=== PATIENT | female | born 1970 ===

== ENCOUNTER 2017-04-13 11:04 | Emergency (ER) | payer OTHER ==
[2017-04-13 11:30] VITALS: BMI 34.4
--- NOTE | 2017-04-13 12:15 | CT ---
History: Right-sided weakness Study: CT brain without contrast Findings: [address] imaging through the head is performed with coronal and sagittal reformatted i tejas submitted as well. There is a tiny area of diminished density within the right thalamus suggest ing a previous lacunar infarct. Ventricles are normal in size and position. There is an area of dimin ished density within the medial aspect of the right occipital lobe medially consistent with a previou s peripheral infarct. No acute infarct, bleed or subdural collection is identified. The bony calvariu m appears intact. Impression: Previous small right-sided infarcts as described. Reported By:
[2017-04-13 12:40] LABS: BASOPHILS # (AUTO) 0.1 X10^3/uL (0.0-0.1); BASOPHILS % (AUTO) 1.3 % (0.2-1.0); EOSINOPHILS # (AUTO) 0.2 x10^3/uL (0.0-0.2); EOSINOPHILS % (AUTO) 2.2 % (0.9-2.9); HEMATOCRIT 39.5 % (36.0-47.0); HEMOGLOBIN 13.4 g/dL (12.0-16.0); LYMPHOCYTES # (AUTO) 2.2 X10^3/uL (1.3-2.9); LYMPHOCYTES % (AUTO) 22.1 % (21.0-51.0); MEAN CORPUSCULAR HEMOGLOBIN 29.4 pg (27.0-34.0); MEAN CORPUSCULAR HGB CONC 33.9 g/dL (33.0-35.0); MEAN CORPUSCULAR VOLUME 86.8 fL (80.0-100.0); MEAN PLATELET VOLUME 8.5 fL (7.4-11.0); MONOCYTES # (AUTO) 0.4 x10^3/uL (0.3-0.8); MONOCYTES % (AUTO) 3.9 % (0.0-13.0); NEUTROPHILS % (AUTO) 70.5 % (42.0-75.0); PLATELET COUNT 354 X10^3/uL (150.0-450.0); RED BLOOD COUNT 4.55 X10^6/uL (3.5-5.4); RED CELL DISTRIBUTION WIDTH 14.6 % (11.6-16.5)
[2017-04-13 12:58] LABS: ALANINE AMINOTRANSFERASE 21 Units/L (12-78); ALBUMIN 3.4 g/dL (3.4-5.0); ALKALINE PHOSPHATASE 78 Units/L (46-116); ASPARTATE AMINO TRANSFERASE 16 Units/L (15-37); BLOOD UREA NITROGEN 7 mg/dL (7-18); CALCIUM 8.8 mg/dL (8.5-10.1); CARBON DIOXIDE 28.6 mmol/L (21-32); CHLORIDE 103 mmol/L (98-107); CREATINE KINASE MB < 1.0 ng/mL (0-4.0); CREATININE 0.74 mg/dL (0.55-1.02); SODIUM 139 mmol/L (136-145); eGFR BLACK RACES > 60 (>60); eGFR NON BLACK RACES > 60 (>60)
--- NOTE | 2017-04-13 13:25 | DR.GENAD ---
HPI - PCP Primary Care Physician: DOMINIQUE MCKEON, AND DR. HERNANDEZ - Complaint/Symptoms Chief Complaint:: YESTERDAY AM NOTED UNABLE TO DO ANYTHING WITH THE RIGHT ARM. 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 WHEN WENT TO BED THE NIGHT BEFORE YESTERDAY HAD. 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, Hysterectomy - Family History History of Family Medical Conditions: Yes Family Medical History: Cancer, Hypertension - Social History Type of Tobacco Use: Cigarettes Alcohol Use: None Do you use any recreational Drugs:: No Lives With: Family Lives Where: Home - infectious screening In the last 2 months have you had wt loss of >10#?: NO Have you had fever, night sweats or hemotysis?: No Have you traveled outside the country in the last 6 months?: No Isolation: Standard ROS - Review of Systems Constitutional: See HPI Eyes: No Symptoms Reported ENTM: No Symptoms Reported Respiratoy: No Symptoms Reported Cardiovascular: No Symptoms Reported Gastrointestinal/Abdominal: No Symptoms Reported Neurological: Pre-existing Deficit, Weakness, Other (weak RUE, much worse than before prior CVA) Musculoskeletal: See HPI Integumentary: No Symptoms Reported Hematologic/Lymphatic: No Symptoms Reported Endocrine: No Symptoms Reported Psychiatric: No Symptoms Reported All Other Systems: Reviewed and Negative PE - Vital Signs Vitals: Temperature 98.9 F Pulse Rate [Apical] 73 Pulse Rate 76 Respiratory Rate 20 Blood Pressure [Left Arm] 167/91 Blood Pressure 216/96 O2 Sat by Pulse Oximetry 100 - General Limitations: No Limitations General Appearance: Alert, In No Apparent Distress. negative: Appears Intoxicated, Anxious, Lethargic, Obtunded, In Distress, Obese, Cachectic - Head Head Exam: Normal Inspection, Normocephalic - Eyes Eye exam: Normal Appearance, PERRL, EOMI. negative: Nystagmus - ENT ENT Exam: Normal Exam - Neck Neck Exam: Normal Inspection, Full ROM - Chest Chest Inspection: Normal Inspection - Respiratory Respiratory Exam: Normal Lung Sounds Bilat Respiratory Exam: Bilateral Clear to Auscultation - Cardiovascular Cardiovascular Exam: Regular Rate, Normal Rhythm, Normal Heart Sounds - Abdominal Exam Abdominal Exam: Normal Inspection, Normal Bowel Sounds, Soft - Extremities Extremities Exam: Other (R arm strength 2/5, can barely move against gravity. Sensation intact. Entire RUE affected. Pt normally rt handed) - Back Back Exam: Normal Inspection - Neurologic Neurological Exam: Alert, Oriented X3, Normal Gait - Psychiatric Psychiatric Exam: Normal Affect, Normal Mood ROR - Labs Reviewed Laboratory Results Reviewed?: Yes (nothuing acute) Result Diagrams: 04/13/17 12:30 04/13/17 12:30 Laboratory: WBC 10.0 X10^3/uL (3.6-10.0) 04/13/17 12:30 RBC 4.55 X10^6/uL (3.5-5.4) 04/13/17 12:30 Hgb 13.4 g/dL (12.0-16.0) 04/13/17 12:30 Hct 39.5 % (36.0-47.0) 04/13/17 12:30 MCV 86.8 fL (80.0-100.0) 04/13/17 12:30 MCH 29.4 pg (27.0-34.0) 04/13/17 12:30 MCHC 33.9 g/dL (33.0-35.0) 04/13/17 12:30 RDW 14.6 % (11.6-16.5) 04/13/17 12:30 Plt Count 354 X10^3/uL (150.0-450.0) 04/13/17 12:30 MPV 8.5 fL (7.4-11.0) 04/13/17 12:30 Neut % 70.5 % (42.0-75.0) 04/13/17 12:30 Lymph % 22.1 % (21.0-51.0) 04/13/17 12:30 Clinton % 3.9 % (0.0-13.0) 04/13/17 12:30 Eos % 2.2 % (0.9-2.9) 04/13/17 12:30 Baso % 1.3 % (0.2-1.0) H 04/13/17 12:30 Neut # 7.0 x10^3/uL (2.2-4.8) H 04/13/17 12:30 Lymph # 2.2 X10^3/uL (1.3-2.9) 04/13/17 12:30 Clinton # 0.4 x10^3/uL (0.3-0.8) 04/13/17 12:30 Eos # 0.2 x10^3/uL (0.0-0.2) 04/13/17 12:30 Baso # 0.1 X10^3/uL (0.0-0.1) 04/13/17 12:30 Absolute Nucleated RBC 0.0 /100WBC 04/13/17 12:30 Sodium 139 mmol/L (136-145) 04/13/17 12:30 Corrected Sodium TNP 04/13/17 12:30 Potassium 3.7 mmol/L (3.5-5.1) 04/13/17 12:30 Chloride 103 mmol/L (98-107) 04/13/17 12:30 Carbon Dioxide 28.6 mmol/L (21-32) 04/13/17 12:30 BUN 7 mg/dL (7-18) 04/13/17 12:30 Creatinine 0.74 mg/dL (0.55-1.02) 04/13/17 12:30 Est GFR (MDRD) Af Amer > 60 (>60) 04/13/17 12:30 Est GFR (MDRD) Non-Af > 60 (>60) 04/13/17 12:30 Glucose 99 mg/dL (65-99) 04/13/17 12:30 Calcium 8.8 mg/dL (8.5-10.1) 04/13/17 12:30 Corrected Calcium TNP 04/13/17 12:30 Total Bilirubin 0.10 mg/dL (0.2-1.0) L 04/13/17 12:30 AST 16 Units/L (15-37) 04/13/17 12:30 ALT 21 Units/L (12-78) 04/13/17 12:30 Alkaline Phosphatase 78 Units/L (46-116) 04/13/17 12:30 CK-MB (CK-2) < 1.0 ng/mL (0-4.0) 04/13/17 12:30 Total Protein 8.0 g/dL (6.4-8.2) 04/13/17 12:30 Albumin 3.4 g/dL (3.4-5.0) 04/13/17 12:30 Globulin 4.6 g/dL (2.5-4.5) H 04/13/17 12:30 Albumin/Globulin Ratio 0.7 Ratio (1.1-2.1) L 04/13/17 12:30 - XRAY XRAY Findings: CT head no new acute lesion - Diagnosis Discharge Problem: Right arm weakness - Discharge Plan Disposition: 01 HOME, SELF-CARE Condition: Stable - Follow ups/Referrals Follow ups/Referrals: DOMINIQUE MCKEON [Primary Care Provider] - 3 days - Instructions Additional Notes - Additional Notes Additional Notes: Spoke with Dr Voss, pt's neurologist. Sghe suggests MRI but pt unwilling to wait today to get one from the ER. Dr Voss also suggests hypercoag w/u. Pt cant recall having one, nor can she recall getting her carotids etc checked. I urged her to f/u Dr Voss for further w/u.
[2017-04-13 14:24] VITALS: BP 167/91
== END 2017-04-13 14:50 | disposition home or self-care (01) ==
LOC: ER 11:53
DX: R53.1 Weakness (principal); Z86.73 Personal history of transient ischemic attack (TIA), and cerebral infarction without residual deficits
CPT/HCPCS: 36415; 70450; 80053; 82553; 85025; 99282; 99283

== ENCOUNTER 2017-04-28 14:24 | Emergency (ER) | payer OTHER ==
[2017-04-28 14:30] VITALS: BMI 34.0
--- NOTE | 2017-04-28 15:15 | DR.GENAD ---
HPI - PCP Primary Care Physician: DOMINIQUE , - Complaint/Symptoms Chief Complaint Doctors Comments: Patient presented to the ED s/p being informed that her MRI was abnormal. She states that she started having vision problems two weeks ago and getitng less feeling in her right hand. Comparison of brain CT 04/13/[address] of brain 04/30/17 @1158 and MR brain 11/25/14: new area of T2 signal abnormality in the left bullock radiata is compatible with subactue infarction. 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 Chief Complaint:: PT STATES " I WAS AT HOME ON THE [place] AND I WAS TOLD THAT MY MRI WAS NOT NORMAL AND TO COME TO THE ER TO BE SEEN". 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, Hysterectomy - Family History History of Family Medical Conditions: Yes Family Medical History: Cancer, Hypertension - Social History Does patient currently use any type of tobacco product: Yes Have you used tobacco products in the last 12 months: Yes Type of Tobacco Use: Cigarettes How many years tobacco product used: 32 Does any household member use tobacco: No Alcohol Use: None Do you use any recreational Drugs:: No Lives With: Family Lives Where: Home - infectious screening In the last 2 months have you had wt loss of >10#?: NO Have you had fever, night sweats or hemotysis?: No Have you traveled outside the country in the last 6 months?: No Isolation: Standard ROS - Review of Systems Eyes: No Symptoms Reported ENTM: No Symptoms Reported Respiratoy: No Symptoms Reported Cardiovascular: No Symptoms Reported Gastrointestinal/Abdominal: No Symptoms Reported Genitourinary: No Symptoms Reported Neurological: No Symptoms Reported Musculoskeletal: No Symptoms Reported Integumentary: No Symptoms Reported Hematologic/Lymphatic: No Symptoms Reported Endocrine: No Symptoms Reported Psychiatric: No Symptoms Reported All Other Systems: Reviewed and Negative PE - Vital Signs Vitals: Temperature 98.0 F Pulse Rate 81 Respiratory Rate 18 Blood Pressure [Left Arm] 167/91 Blood Pressure 167/91 O2 Sat by Pulse Oximetry 98 - General General Appearance: Alert, In No Apparent Distress - Head Head Exam: Normal Inspection, Atraumatic - Eyes Eye exam: Normal Appearance, PERRL, EOMI - ENT ENT Exam: Normal Exam, Normal Oropharynx External Ear Exam: Normal External Inspection TM/Canal Exam: Bilateral Normal Nose Exam: Normal Nose Exam Mouth Exam: Normal Inspection Throat Exam: Normal Inspection - Neck Neck Exam: Normal Inspection - Chest Chest Inspection: Normal Inspection - Respiratory Respiratory Exam: Normal Lung Sounds Bilat Respiratory Exam: Bilateral Clear to Auscultation - Cardiovascular Cardiovascular Exam: Regular Rate, Normal Rhythm - Abdominal Exam Abdominal Exam: Normal Inspection Abdominal Tenderness: negative: RUQ, RLQ, LUQ, LLQ, Epigastrium, Suprapubic, Diffuse, Mild, Moderate, Severe, Other - Extremities Extremities Exam: Other (right sided hemiparesis) - Back Back Exam: Normal Inspection, Full ROM - Neurologic Neurological Exam: Alert, Oriented X3 - Psychiatric Psychiatric Exam: Normal Affect - Skin Skin Exam: Warm, Dry, Intact Course - Treatment Treatment: Report of MR given to patient, she decided to see her neurologist on Monday05/01/17. - Consultation Called: 16:00 (He agreed to see patient on Monday) Consultation Comments: Patient decided to wait to see her neurologist on Monday- The report of the MR was discussed with patient - Diagnosis Discharge Problem: Acute right hemiparesis - Discharge Plan Condition: Stable - Follow ups/Referrals Follow ups/Referrals: DOMINIQUE MCKEON [Primary Care Provider] - 3 days - Instructions
[2017-04-28] MEDS ORDERED: CATAPRES TAB 0.2 MG PO ONE (15:32)
[2017-04-28] MEDS ORDERED: CATAPRES TAB 0.2 MG ONE (15:33)
[2017-04-28 16:39] VITALS: BP 222/95
== END 2017-04-28 16:30 | disposition home or self-care (01) ==
LOC: ER 14:34
DX: G81.93 Hemiplegia, unspecified affecting right nondominant side (principal)
CPT/HCPCS: 70551; 99282

== ENCOUNTER → 2017-04-28 | Outpatient (CLI) | payer OTHER ==
[2017-04-13 14:24] VITALS: BP 167/91
--- NOTE | 2017-04-28 12:20 | MRI ---
MR brain without contrast Indication: Headaches and right sided weakness Comparison: 04/13/[address] MR brain from 11/25/2014 reviewed. Technique: Multiplanar multi sequence imaging through the brain without contrast. Findings: There is focal abnormal signal on diffusion-weighted imaging in the left bullock radiata, abutting the basal ga nglia on axial image 24 of series 602. ADC map shows high-signal in this location. This corresponds t o vague hypodensity on CT. Bone marrow signal is normal. Pituitary gland is normal. Upper cervical spine is intact. The orbits a nd soft tissues of the face appear normal. Paranasal sinuses and mastoid air cells are clear. There is vague T2 signal abnormality in the area of restricted diffusion in the left bullock radiata. Bilateral basal ganglia T2 hyperintensities are compatible with old lacunar infarctions/dilated. Vasc ular spaces. Vascular flow voids are normal. No extra-axial fluid collection, mass or mass effect see n. Ventricles and sulci are normal. FLAIR show scattered T2 white matter changes bilaterally compatib le with microangiopathic change. Focal right away hamate and left posterior limb internal capsule inf arct again noted, chronic appearing. Mucosal retention cyst noted in the right sphenoid sinus. Suscep tibility artifact shows no evidence of hemorrhage. Small focus of susceptibility in the right cerebra l hemisphere on axial image 21 probably reflects dystrophic calcification or old microhemorrhage. Impression: 1. New area of T2 signal abnormality in the left bullock radiata is compatible with subacute infarctio n, given FLAIR and T2 signal abnormality. 2. Old bilateral basal ganglia infarctions noted. 3. Worsening microangiopathic changes. Reported By:
== END | disposition home or self-care (01) | DRG 65 ==
LOC: RAD 09:40
PROVIDERS: ATTEND Internal Medicine
DX: I63.8 Other cerebral infarction (principal); I69.351 Hemiplegia and hemiparesis following cerebral infarction affecting right dominant side; R47.1 Dysarthria and anarthria
CPT/HCPCS: 70551